=== PATIENT | male | born 1985 | race Caucasian/White ===

== ENCOUNTER 2017-01-24 18:09 | Emergency (ER) | payer SELFPAY ==
[2017-01-24 18:16] VITALS: BMI 23.3
[2017-01-24 18:20] VITALS: BP 127/82; PULSE 59; TEMP 97.9
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
[2017-01-24] MEDS ORDERED: TDAP Vaccine 0.5 mL Syr IM ONE (19:34)
[2017-01-24 19:49] VITALS: RESP 16; O2SAT 99
--- NOTE | 2017-01-25 09:27 | RAD ---
PROCEDURE: Radiographs of the Left Shoulder HISTORY: r/o fx COMPARISON: No prior. FINDINGS: BONES: Normal. No fracture. JOINTS: Normal. Glenohumeral and acromioclavicular joints preserved. No osteoarthritis. SOFT TISSUES: Normal. OTHER FINDINGS: None. IMPRESSION: Normal radiographs of the left shoulder.
== END 2017-01-24 19:49 | disposition home or self-care (01) ==
LOC: ED 18:09
DX: M25.512 Pain in left shoulder (principal); S40.212A Abrasion of left shoulder, initial encounter; S50.812A Abrasion of left forearm, initial encounter; S60.512A Abrasion of left hand, initial encounter; V19.3XXA Pedal cyclist (driver) (passenger) injured in unspecified nontraffic accident, initial encounter; Y93.55 Activity, bike riding; Z23 Encounter for immunization

== ENCOUNTER 2017-02-08 16:47 | Emergency (ER) | payer OTHER ==
[2017-02-08 16:52] VITALS: BMI 22.6
[2017-02-08 16:56] VITALS: BP 112/77; PULSE 65; TEMP 99
--- NOTE | 2017-02-08 17:09 | ED PDOC ---
Arrival/HPI - General Chief Complaint: ENT Problem Time Seen by Provider: 02/08/17 17:07 Historian: Patient - History of Present Illness Narrative History of Present Illness (Text): 02/08/17 17:07 This 31 yo male presents to this ED c/o left hearing problem x 4 days. Patient stated his left ear hearing is sensitive with loud noise, and echo sound. Patient denies hearing changes, n/v, rodgers, diplopia, dysarthria, dysphagia, weakness, paresthesias, dizziness, cms, or abnormal gait. Time/Duration: Other (intermittent for 3 week, worsen last 4 days) Context: Home Past Medical History - Provider Review Nursing Documentation Reviewed: Yes - Infectious Disease Hx of Infectious Diseases: None - Psychiatric Hx Substance Use: No - Anesthesia Hx Anesthesia: No Family/Social History - Physician Review Nursing Documentation Reviewed: Yes Family/Social History: No Known Family HX Smoking Status: Never Smoked Hx Alcohol Use: Yes Hx Substance Use: No Allergies/Home Meds Allergies/Adverse Reactions: Allergies No Known Allergies Allergy (Verified 02/08/17 16:52) Home Medications: Home Meds Medication Instructions Recorded Confirmed No Known Home Med 01/24/17 02/08/17 Review of Systems - Review of Systems Constitutional: Normal. absent: Fatigue, Weight Change, Fevers, Night Sweats Eyes: Normal ENT: Hearing Changes. absent: Tinnitus, TMJ Pain, Voice Changes, Rhinorrhea, Epistaxis Respiratory: Normal Cardiovascular: Normal Gastrointestinal: Normal Genitourinary Male: Normal Musculoskeletal: Normal Skin: Normal Neurological: Normal Endocrine: Normal Hemo/Lymphatic: Normal Psychiatric: Normal Physical Exam Vital Signs Temp Pulse Resp BP Pulse Ox 02/08/17 16:54 99 F 65 16 112/77 100 Temperature: Afebrile Blood Pressure: Normal Pulse: Regular Respiratory Rate: Normal Appearance: Positive for: Well-Appearing, Non-Toxic, Comfortable Pain Distress: None Mental Status: Positive for: Alert and Oriented X 3 - Systems Exam Head: Present: Atraumatic, Normocephalic Pupils: Present: PERRL Extroacular Muscles: Present: EOMI Conjunctiva: Present: Normal Ears: Present: Normal, NORMAL TM, Normal Canal. No: Erythema, TM Bulging, Fluid , TM Perf Mouth: Present: Moist Mucous Membranes Neck: Present: Normal Range of Motion Respiratory/Chest: Present: Clear to Auscultation, Good Air Exchange. No: Respiratory Distress, Accessory Muscle Use Cardiovascular: Present: Regular Rate and Rhythm, Normal S1, S2. No: Murmurs Abdomen: Present: Normal Bowel Sounds. No: Tenderness, Distention, Peritoneal Signs Back: Present: Normal Inspection Upper Extremity: Present: Normal Inspection. No: Cyanosis, Edema Lower Extremity: Present: Normal Inspection. No: Edema Neurological: Present: GCS=15, CN II-XII Intact, Speech Normal Skin: Present: Warm, Dry, Normal Color. No: Rashes Psychiatric: Present: Alert, Oriented x 3, Normal Insight, Normal Concentration Medical Decision Making ED Course and Treatment: 02/08/17 17:22 Patient was recommended to follow up with ENT, and he might need MRI of left ear. Patient understood plan. Patient has a normal gait, and normal speech. No neuro focal deficits. Re-evaluation Time: 17:22 Reassessment Condition: Re-examined, Improved Disposition/Present on Arrival - Present on Arrival Any Indicators Present on Arrival: No History of DVT/PE: No History of Uncontrolled Diabetes: No Urinary Catheter: No History of Decub. Ulcer: No History Surgical Site Infection Following: None - Disposition Have Diagnosis and Disposition been Completed?: Yes Diagnosis: Hyperacusis of left ear Disposition: HOME/ ROUTINE Disposition Time: 17:29 Patient Plan: Discharge Patient Problems: Current Active Problems Problem Status Onset Hyperacusis of left ear Acute Condition: GOOD Discharge Instructions (ExitCare): Tinnitus (ED) Additional Instructions: Call private Ear Nose and Throat doctor office for follow up visit in 2-3 days. Return to emergency if symptoms worsen. Otol[facility]ology-[facility] [address] [place] [id number] Referrals: PCP,NO [Primary Care Provider] - Follow up with primary Luke Ramsey DO [Staff Provider] - Follow up with primary Forms: [employer] ([place]
[2017-02-08 17:52] VITALS: RESP 18; O2SAT 98
== END 2017-02-08 17:52 | disposition home or self-care (01) ==
LOC: ED 16:47
DX: H93.232 Hyperacusis, left ear (principal)